=== PATIENT | female | born 1965 | race Caucasian/White ===

== ENCOUNTER → 2016-05-09 | Outpatient (CLI) | payer OTHER ==
[~2016-05-09] MED LIST: ASPI81TA7 PO; METF500T PO; PAXI40TA2 PO; PRIM25TA PO; PROP10TA8 PO; SIMV20TA2 PO; TOPA100T PO; VIMP100T PO; VITA500047 PO
--- NOTE | 2016-05-09 16:44 | REPMRS ---
Patient History The patient states she had a clinical breast exam in 04/2016. Patient is postmenopausal. No known family history of cancer. Taking unspecified hormones for 1 year. Digital Woman Screen Mammo: May 09, 2016 - Exam #: [id number] Bilateral CC and MLO view(s) were taken. Technologist: Maria Elena Garcia, Technologist Prior study comparison: May 20, 2015, digital woman screen mammo performed at [facility]. March 20, 2012, digital woman screen mammo performed at [facility]. FINDINGS: There are scattered fibroglandular densities. There has been no change in the appearance of the mammogram from the prior studies. There is a mild amount of residual fibroglandular tissue which is fairly symmetric. There is no interval development of dominant mass, architectural distortion, or clustered microcalcification suggestive of malignancy. There are scattered, small, benign calcifications of doubtful clinical significance, most appear to be in the skin. Scattered lymph nodes are seen in the right axilla. No significant changes when compared with prior studies. ASSESSMENT: BI-RADS/ACR category 2 mammogram. Benign finding(s). Recommendation Routine screening mammogram in 1 year (for women over age 40). This mammogram was interpreted with the aid of an FDA-approved computer-aided dectection system. A. Negative x-ray reports should not delay biopsy if a dominant or clinically suspicious mass is present. B. Four to eight percent of cancers are not identified by mammography. C. Adenosis and dense breast may obscure an underlying neoplasm. Electronically Signed By: Manolo Estrada MD 05/09/16 [id number]
== END ==
LOC: M WHC 13:26
PROVIDERS: ATTEND Nurse Practitioner Women's Health
DX: Z12.31 Encounter for screening mammogram for malignant neoplasm of breast (principal)

== ENCOUNTER → 2016-05-09 | Outpatient (REF) | payer OTHER | LOC: M SFHCWAGY 13:45 | PROVIDERS: ATTEND Nurse Practitioner Women's Health | DX: Z12.4 Encounter for screening for malignant neoplasm of cervix (principal); Z12.31 Encounter for screening mammogram for malignant neoplasm of breast ==

== ENCOUNTER → 2016-07-11 | Outpatient (CLI) | payer OTHER ==
--- NOTE | 2016-07-11 22:07 | REP ---
Clinical: Pelvic pain and tenderness . Technique: Transabdominal pelvic ultrasound followed by transvaginal examination for better evaluation of the endometrium and adnexa. Findings: Bladder is unremarkable and measures 9.3 x 6.9 x 8.6 cm . Normal anteverted uterus measures 5.9 x 3.2 x 3.3 cm . The endometrial complex measures 3.8 mm thickness. No discrete uterine or endometrial abnormalities are appreciated. Incidental note is made of few Nabothian cysts measuring up to 15 mm. Bilateral ovaries are normal in appearance. Right ovary measures 1.9 x 1.6 x 1.4 cm. Left ovary measures 1.6 x 0.9 x 0.9 cm. No pelvic fluid or adnexal mass lesions . Impression: 1. few Nabothian cysts measuring up to 15 mm. 2. Otherwise normal pelvic ultrasound. Signed by Federico Farfan MD 07/11/2016 09:58 P
== END ==
LOC: M WHC 09:07
PROVIDERS: ATTEND Nurse Practitioner Women's Health
DX: N94.9 Unspecified condition associated with female genital organs and menstrual cycle (principal)

== ENCOUNTER → 2017-05-10 | Outpatient (CLI) | payer MEDICAID | LOC: M WHC 13:56 | DX: Z12.31 Encounter for screening mammogram for malignant neoplasm of breast (principal) ==

== ENCOUNTER → 2017-05-10 | Outpatient (REF) | payer MEDICAID | LOC: M SFHCWAGY 15:03 | DX: Z12.4 Encounter for screening for malignant neoplasm of cervix (principal) ==

== ENCOUNTER → 2018-07-14 | Outpatient (CLI) | payer MEDICAID, MEDICARE, OTHER ==
--- NOTE | 2018-07-14 12:32 | REPMRS ---
Patient History The patient states she had a clinical breast exam in 05/2018. Family history of pancreatic cancer at age 83 in mother. Took unspecified hormones for 1 year. 3D TOMOSYNTHESIS WAS PERFORMED. Digital Woman Screen Mammo: July 14, 2018 - Exam #: [id number] Bilateral CC and MLO view(s) were taken. Technologist: Heather Morris, Technologist Prior study comparison: May 10, 2017, digital woman screen mammo performed at [facility]. May 09, 2016, digital woman screen mammo performed at [facility]. FINDINGS: There are scattered fibroglandular densities. There has been no change in the appearance of the mammogram from the prior studies. There is a mild amount of residual fibroglandular tissue which is fairly symmetric. There is no interval development of dominant mass, architectural distortion, or clustered microcalcification suggestive of malignancy. Assessment: BI-RADS/ACR category 1 mammogram. Negative Mammogram. Recommendation Routine screening mammogram in 1 year (for women over age 40). This mammogram was interpreted with the aid of an FDA-approved computer-aided dectection system. Electronically Signed By: Janes Rebolledo MD 07/14/18 [id number]
--- NOTE | 2018-07-15 06:09 | REP ---
Clinical: Pelvic pain . Technique: Transabdominal pelvic ultrasound followed by transvaginal examination for better evaluation of the endometrium and adnexa. Findings: Bladder is unremarkable and measures 7.9 x 9.3 x 7.1 cm . Normal anteverted uterus measures 7.2 x 2.8 x 4.3 cm . The endometrial complex measures 3.1 mm thickness. Nabothian cysts are identified measuring up to 17 mm. Right ovary is not visualized. Left ovary appears normal and measures 1.5 x 0.7 x 1.1 cm. No pelvic fluid or adnexal mass lesion. Impression: 1. Nabothian cysts measuring up to 17 mm. 2. Right ovary not visualized.
== END ==
LOC: M WHC 10:56
PROVIDERS: ATTEND Nurse Practitioner Women's Health
DX: Z12.31 Encounter for screening mammogram for malignant neoplasm of breast (principal); R10.2 Pelvic and perineal pain; N95.0 Postmenopausal bleeding; N88.8 Other specified noninflammatory disorders of cervix uteri; Z80.0 Family history of malignant neoplasm of digestive organs